=== PATIENT | male | born 1995 | race Asian ===

== ENCOUNTER 2016-11-12 21:28 | Emergency (ER) | payer OTHER ==
[~2016-11-12] VITALS: Ht 170.2 cm; Wt 98.6 kg
[2016-11-12 21:35] VITALS: TEMP 37; Ht 170.2 cm; Wt 98.6 kg
[2016-11-12] MEDS ORDERED: GUAI1TAB55 PO (21:53)
[2016-11-12] MEDS ORDERED: MULT1PAK6 PO (21:54)
[2016-11-12 22:44] LABS: BASO % 0.3 %; BASO ABS # 0.01 K/uL (0-0.2); COMPLETE YES; EOS % 2.8 %; HEMATOCRIT 42.6 % (42-52); IG% 0.5 %; LYMPH % 29.1 %; LYMPH ABS # 1.16 K/uL (1.2-3.4); MEAN CORPUSCULAR HEMOGLOBIN 27.6 pg (25-34); MEAN PLATELET VOLUME 9.2 fL (7.4-10.4); MONO % 23.3 %; PLATELET COUNT 195 K/uL (130-400); RED BLOOD COUNT 5.26 M/uL (4.7-6.1); WHITE BLOOD COUNT 3.99 K/uL (4.8-10.8)
--- NOTE | 2016-11-12 22:47 | DIAGNOSTIC IMAGING REPORT ---
CHEST 2 VIEWS ROUTINE HISTORY: cough, fevers COMPARISON: None. FINDINGS: The lungs are clear. Cardiac silhouette is normal in size. No pleural effusions. No pneumothorax. IMPRESSION: No acute process. Electronically signed by: Michi Beasley M.D. 11/12/2016 10:46 PM Dictated Date/Time: 11/12/2016 10:45 PM
[2016-11-12 23:06] LABS: BLOOD UREA NITROGEN 12 mg/dl (7-18); BUN/CREATININE RATIO 16.4 (10-20); CALCIUM 8.1 mg/dl (8.5-10.1); CARBON DIOXIDE 27 mmol/L (21-32); CHLORIDE 106 mmol/L (98-107); CREATININE 0.73 mg/dl (0.60-1.40); GLUCOSE 108 mg/dl (70-99); POTASSIUM 3.7 mmol/L (3.5-5.1); SODIUM 143 mmol/L (136-145)
[2016-11-12 23:49] VITALS: BP 144/82; PULSE 101; O2SAT 98
--- NOTE | 2016-11-14 00:28 | EMERGENCY ROOM VISIT NOTE ---
ED Visit Note First contact with patient: 21:48 Chief Complaint: Flulike symptoms. History of Present Illness: Mr. Link is a 21-year-old male who ambulates into the ED complaining of flulike symptoms. Patient reports approximately 8 days ago he developed a sore throat with cough and fevers. She reports after 2 days the sore throat resolved but he continues to have fevers and a productive cough of greenish sputum. He then goes on to report that last night he started developing body aches and had night sweats when he awoke this morning. Currently his body aches are predominantly in the lower extremities; hips and knees. He rates his discomfort 7/10. The pain is nonradiating. He has not identified any aggravating or alleviating factors related to the pain. He has not taken any medications for his pain or fevers in the last 24 hours. He does report he has been using Mucinex for his cough with no relief of his symptoms. Associated with these symptoms she reports she's been having chills, intermittent sweats and dyspnea on exertion. He denies headache, dizziness, lightheadedness, neck pain and stiffness, painful talking, drooling, inability to swallow, back pain, chest pain, hemoptysis, palpitations, orthopnea, dependent edema, previous clots, claudication, cramping, recent surgery/inactivity/extended travel, decreased appetite, nausea, vomiting, abdominal pain, skin eruptions, skin color changes Review of Systems: As noted above in history of present illness. All body systems were reviewed and found to be negative as noted above. Past Medical History: Patient denies. Current Medications: Mucinex and multivitamins. Allergies to Medications: Patient denies. Social History: Patient is currently University student; he feels safe in his home environment; he denies tobacco and alcohol use. Physical Examination: Vital Signs: Date Time Temp Pulse Resp B/P Pulse Ox O2 Delivery O2 Flow Rate FiO2 11/12/16 23:49 101 18 144/82 98 11/12/16 21:35 37.0 116 18 145/88 94 Room Air GENERAL: 21-year-old male in mild distress due to symptoms, nontoxic-appearing, afebrile and hemodynamically stable. NEUROLOGICAL: Awake, alert and oriented to person, place and time. Answering questions appropriately and following commands. Normal gait. Good hand eye coordination. No focal motor sensory deficits. SKIN: Warm, dry and pink. No soft tissue eruptions noted. HEENT: Atraumatic and normocephalic. No erythema or tenderness over the frontal or maxillary sinuses. Auditory canals are pink and patent. Tympanic membrane is pearly pineda with normal light reflex bilaterally. PERRLA. Sclera white and conjunctiva pink without drainage. No drainage from naris with mild audible congestion. Oral cavity moist and pink. Uvula is midline and no abscesses are seen. Pharynx is nonerythematous or edematous. No tonsillar hypertrophy or exudates. Speech normal and clear. No lymphadenopathy. Trachea midline. No jugular venous distention. No laryngeal tenderness. BACK: No tenderness over the bony cervical and thoracic spine. No nuchal rigidity. Full range of motion of the cervical spine. No CVA tenderness. THORAX: Lungs sounds are clear to auscultation and equal bilaterally with symmetrical chest wall. No wheezing, rales or rhonchi. No crepitus, tenderness , subcutaneous air or deformities noted. No increased respiratory effort or rate. HEART: Tachycardic rate and rhythm. No gallops, rubs or murmurs are appreciated. ABDOMEN: Flat, soft and nontender. Positive bowel sounds in all quadrants. No guarding, rigidity or organomegaly. EXTREMITIES: Moves all extremities well on command and with purpose. All distal neurovascular statuses are intact and equal bilaterally. No calf tenderness or cords. ED Course: Patient is assessed as noted above. Laboratory Testing: Test 11/12/16 21:49 11/12/16 22:30 Range/Units Influenza Type A Antigen Neg for Influ A NEG Influenza Type B Antigen POS for Influ B NEG White Blood Count 3.99 4.8-10.8 K/uL Red Blood Count 5.26 4.7-6.1 M/uL Hemoglobin 14.5 14.0-18.0 g/dL Hematocrit 42.6 42-52 % Mean Corpuscular Volume 81.0 80-100 fL Mean Corpuscular Hemoglobin 27.6 25-34 pg Mean Corpuscular Hemoglobin Concent 34.0 32-36 g/dl Platelet Count 195 130-400 K/uL Mean Platelet Volume 9.2 7.4-10.4 fL Neutrophils (%) (Auto) 44.0 % Lymphocytes (%) (Auto) 29.1 % Monocytes (%) (Auto) 23.3 % Eosinophils (%) (Auto) 2.8 % Basophils (%) (Auto) 0.3 % Neutrophils # (Auto) 1.76 1.4-6.5 K/uL Lymphocytes # (Auto) 1.16 1.2-3.4 K/uL Monocytes # (Auto) 0.93 0.11-0.59 K/uL Eosinophils # (Auto) 0.11 0-0.5 K/uL Basophils # (Auto) 0.01 0-0.2 K/uL RDW Standard Deviation 39.4 36.4-46.3 fL RDW Coefficient of Variation 13.3 11.5-14.5 % Immature Granulocyte % (Auto) 0.5 % Immature Granulocyte # (Auto) 0.02 0.00-0.02 K/uL Sodium Level 143 136-145 mmol/L Potassium Level 3.7 3.5-5.1 mmol/L Chloride Level 106 98-107 mmol/L Carbon Dioxide Level 27 21-32 mmol/L Anion Gap 10.0 3-11 mmol/L Blood Urea Nitrogen 12 7-18 mg/dl Creatinine 0.73 0.60-1.40 mg/dl Est Creatinine Clear Calc Drug Dose 180.6 ml/min Estimated GFR () > 150.0 Estimated GFR (Non- 133.5 BUN/Creatinine Ratio 16.4 10-20 Random Glucose 108 70-99 mg/dl Calcium Level 8.1 8.5-10.1 mg/dl Chest X-Rays: Was read by myself and the radiologist showing no acute infiltrates, effusions or pneumothorax. Normal heart silhouette and bony anatomy. No previous to compare. Patient was offered IV fluids and pain medications and refused. Patient was reassessed multiple times during his stay in the emergency department. Patient's case was reviewed with Dr. Corrigan; we agreed on diagnostic approach, treatment, disposition and plan. Because patient's fevers have been gone on for a week and he does not appear at high risk antiviral medications were not recommended. Patient was educated about tonight's findings and instructed on his treatment plan; he verbalizes understanding and agreement with this plan. Clinical Impression: Influenza B. Decision-Making: Initially my differential diagnosis I considered acute pharyngitis for multiple reasons including viral, streptococcal, pneumonia, bronchitis, influenza and other causes. Disposition: Patient discharged home in stable condition; prior to departure he was reassessed and subjectively reported that he was pain-free. Plan: Patient was encouraged to alternate ibuprofen and acetaminophen as needed for pain or fevers every 3 hours. Patient was encouraged to stay well-hydrated with increased fluids. Patient was encouraged to follow-up at [facility] for recheck and return to class instructions. Patient was encouraged return ED for worsening/uncontrolled fevers, uncontrolled body aches, vomiting or any new/concerning symptoms.
== END 2016-11-12 23:49 | disposition home or self-care (01) ==
LOC: C.EDB 21:31
DX: J10.1 Influenza due to other identified influenza virus with other respiratory manifestations (principal)